=== PATIENT | male | born 1965 | race Caucasian/White ===

== ENCOUNTER 2018-04-03 21:56 | Emergency (ER) | payer OTHER ==
[~2018-04-03] VITALS: Ht 154.9 cm; Wt 97.5 kg
[2018-04-04] MEDS ORDERED: VIGAMOX3 ML OPH (00:05)
[2018-04-04] MEDS ORDERED: ERYTHROMYCIN1 GM OPH (00:05)
--- NOTE | 2018-04-04 00:07 | ED EYE COMPLAINT ---
History of Present Illness General Chief Complaint: Eye Problems Stated Complaint: BILATERAL EYE REDNESS AND PAIN Source: patient Exam Limitations: no limitations Vital Signs & Intake/Output Vital Signs & Intake/Output Vital Signs Date Time Temp Pulse Resp B/P B/P Pulse O2 O2 Flow FiO2 Mean Ox Delivery Rate 04/04 0015 80 146/96 04/03 2205 98.7 71 16 166/106 97 Room Air ED Intake and Output 04/04 0000 04/03 1200 Intake Total Output Total Balance Patient 215 lb Weight Weight Reported by Patient Measurement Method Allergies Coded Allergies: NO KNOWN ALLERGIES (01/19/13) Reconcile Medications Erythromycin Base (Erythromycin) 5 MG/GRAM (0.5 %) OINT...G. 1 JON OPH 4XDP eye infection apply 1 cm ribbon into the lower conjunctival sac Hydrocodone/Acetaminophen (Hydrocodon-Acetaminophen 5-325) 5 MG-325 MG TABLET 1-2 TAB PO Q4-6 PRN PRN pain Moxifloxacin Hydrochloride (Vigamox) 0.5 % DROPS 1 GTT OPH TID eye infection Triage Note: PT STATES THAT HE WENT TO WORK AND FELT A PINCH. IN BOTH EYES. PT EYES ARE RED ANS SWOLLEN. PT STATES THAT HIS VISION IS FUZZY. PT STATES THAT HIS EYES ARE VERY PAINFUL, EYES ARE WATERING AND DISCHARGE. PT STATES THAT HIS EYES HAVE BEEN WATERING SINCE MONDAY. Triage Nurses Notes Reviewed? yes Onset: Abrupt Duration: day(s): Timing: recent history Injury Environment: home No Modifying Factors: none HPI: 52-year-old male comes into the emergency room with bilateral eye redness swelling and discharge. Patient reports that he said some white discharge coming from both eyes and swelling to his eyes. Denies any trauma. Denies any prior history. Denies any contacts. Some blurred vision but no vision loss. He comes in for further evaluation. Sharp throbbing pain. (Refugio Alvarenga) Past History Travel History Traveled to [place] past 21 day No Medical History Any Pertinent Medical History? none Surgical History Surgical History: non-contributory Psychosocial History What is your primary language Nauruan Tobacco Use: Never used Family History Hx Contributory? No (Refugio Alvarenga) Review of Systems Review of Systems Constitutional: Reports: no symptoms. Eyes: Reports: see HPI. Ear: Reports: no symptoms. Nose: Reports: no symptoms. Mouth: Reports: no symptoms. Throat: Reports: no symptoms. Respiratory: Reports: no symptoms. Cardiovascular: Reports: no symptoms. GI: Reports: no symptoms. Genitourinary: Reports: no symptoms. Musculoskeletal: Reports: no symptoms. Skin: Reports: no symptoms. Neurological/Psychological: Reports: no symptoms. Hematologic/Endocrine: Reports: no symptoms. Immunologic/Allergic: Reports: no symptoms. All Other Systems: Reviewed and Negative (Refugio Alvarenga) Physical Exam General Appearance: well developed/nourished, mild distress General Inspection: swelling/erythema Eyelid: edema, erythema Conjunctiva/Sclera: injected, purulent drainage Cornea: normal inspection EOM: intact Pupil: normal accommodation, normal pupil, PERRL General Inspection: swelling/erythema Eyelid: edema, erythema Conjunctiva/Sclera: injected, purulent drainage Cornea: normal inspection EOM: intact Pupil: normal accommodation, normal pupil, PERRL Physical Exam Head: atraumatic Nose: normal inspection Mouth/Throat: normal mouth inspection Neck: normal inspection, supple Cardiovascular/Respiratory: no respiratory distress Neurologic/Psych: awake, alert, oriented x 3, normal mood/affect Skin: intact, normal color, warm/dry (Refugio Alvarenga) Progress Differential Diagnosis: corneal abrasion, corneal foreign body, conjunctivitis Plan of Care: 04/04/2018 8:33:42 AM Denies any trauma. Patient was referred to ophthalmology. Return if any other concerns worsening symptoms. No vision loss. No contacts. (Refugio Alvarenga) Departure Departure Disposition: HOME OR SELF CARE Condition: Stable Clinical Impression Primary Impression: Bacterial conjunctivitis of both eyes Referrals: Patient Has No Primary Care Dr (PCP/Family) Ramakrishna SIMMS,Fuad Gupta Additional Instructions: Use Vigamox and ertyhromycin ointment as prescribed. 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 Return if any concerns worsening symptoms. Please go over all results of today's visit with your primary care doctor. Contact your primary care doctor to let them know you were here in the emergency room. There may be nonspecific findings which may not be related to your visit today here in the emergency room but may require further evaluation and chronic monitoring by your primary care doctor. If you had a laceration today the chance of foreign body always remains. You should follow-up with your primary care doctor for recheck in 3-5 days for a wound check. If you had an x-ray done there is a chance that a fracture could have been missed on initial read and you should follow-up with your primary care doctor for repeat x-rays if symptoms persist. If your blood pressure was elevated here in the emergency room please have rechecked by hyour primary care doctor within the next 48. If you were prescribed a narcotic here in the emergency room or any type of controlled substances you're not allowed to drive while taking this medication or operate any type of heavy machinery. Narcotics can make you feel lightheaded dizziness nausea and can cause constipation. You may need to hop picker a stool softener. Thank you for choosing [facility] emergency room. Please return to the emergency room immediately if you have any other concerns worsening of symptoms. Departure Forms: Customer Survey General Discharge Information Prescriptions: Current Visit Scripts Moxifloxacin Hydrochloride (Vigamox) 1 GTT OPH TID #3 ML Erythromycin Base (Erythromycin) 1 JON OPH 4XDP #3.5 GM apply 1 cm ribbon into the lower conjunctival sac Hydrocodone/Acetaminophen (Hydrocodon-Acetaminophen 5-325) 1-2 TAB PO Q4-6 PRN PRN pain #10 TAB (Refugio Alvarenga) PA/FINAL INSPECTOR TRUCK TRAILER Co-Sign Statement Statement: ED Attending supervision documentation- [] I saw and evaluated the patient. I have also reviewed all the pertinent lab results and diagnostic results. I agree with the findings and the plan of care as documented in the PA's/FINAL INSPECTOR TRUCK TRAILER's documentation. [x] I have reviewed the ED Record and agree with the PA's/FINAL INSPECTOR TRUCK TRAILER's documentation. [] Additions or exceptions (if any) to the PAs/FINAL INSPECTOR TRUCK TRAILER's note and plan are summarized below: [] (Naeem SIMMS,Rusty Lopez)
[2018-04-04] MEDS ORDERED: HYDROCODON-ACE1 EAC2 PO (00:13)
[2018-04-04 00:15] VITALS: BP 146/96
== END 2018-04-04 00:15 ==
LOC: ERH 21:56
DX: H10.9 Unspecified conjunctivitis (principal)